=== PATIENT | male | born 1960 | race Caucasian/White ===

== ENCOUNTER 2016-10-25 22:19 | Emergency (ER) | payer SELFPAY ==
[~2016-10-25] VITALS: Ht 177.8 cm; Wt 91.0 kg
[~2016-10-25 22:19] MED LIST: AMLO10 PO; BAYE325T3 PO; CLIN1CAP6 PO; DOXY100C PO; DYAZ37.52 PO; HYDR-3533 PO; LABE100 PO; RAMI10CA PO; ZITH500T PO
--- NOTE | 2016-10-25 22:27 | PD ---
Physical Exam Date Seen by Provider: Oct 25, 2016 Time Seen by Provider: 22:26 Narrative 56 year old male presents to the emergency department for evaluation of flulike symptoms including chest pain, shortness of breath, head congestion, sore throat , coughing, low grade fevers for 4-5 days. Symptoms are worsening, not improving. He was diagnosed with influenza by his primary care provider. Patient awaiting bed placement. [facility] Supervised Visit with PILI: Ronel Prieto Oct 25, 2016 22:27
[2016-10-25 22:36] VITALS: BP 229/105; PULSE 69; RESP 16; TEMP 98.5; O2SAT 98
[2016-10-25 23:00] VITALS: BP 201/98; PULSE 64; RESP 16; TEMP 98.4; O2SAT 95
[2016-10-25] MEDS ORDERED: ASPI325T PO (23:05)
[2016-10-25] MEDS ORDERED: LABE100T2 PO (23:07)
[2016-10-25] MEDS ORDERED: TRIA37.5 PO (23:07)
[2016-10-25] MEDS ORDERED: LISI-515 PO (23:07)
[2016-10-25] MEDS ORDERED: SODIUM CHLOR 0.9% 1000 ML INJ 1,000 ML IV SCH (23:17)
[2016-10-25 23:19] LABS: MEAN CORPUSCULAR HGB CONC 36.5 % (32.0-36.0)
[2016-10-25] MEDS ORDERED: KETOROLAC TROMETHAMINE 30 MG/ML (IVP) VIAL IV PUSH ONE (23:30)
[2016-10-25] MEDS ORDERED: SODIUM CHLORIDE 0.9% FLUSH 10 ML FLUSH IV FLUSH PRN (23:30)
[2016-10-25] MEDS ORDERED: METOCLOPRAMIDE HCL 10 MG/2 ML VIAL IV PUSH ONE (23:30)
[2016-10-25 23:36] VITALS: PULSE 60; RESP 12; O2SAT 95
[2016-10-25] MEDS: RESP: ALBUTEROL 2.5 MG/IPRATROPIUM 0.5 MG NEB (SCH) INH ×2 (23:51→23:52)
[2016-10-25 23:54] LABS: BASOPHIL % 0.6 % (0.0-2.0); EOSINOPHIL # 0.1 TH/MM3 (0-0.4); EOSINOPHIL % 3.9 % (0.0-4.0); HEMATOCRIT 37.7 % (39.0-51.0); LYMPH % 20.8 % (9.0-44.0); LYMPHOCYTE # 0.8 TH/MM3 (1.0-4.8); MEAN CELL VOLUME 85.2 FL (80.0-100.0); MEAN CORPUSCULAR HEMOGLOBIN 31.1 PG (27.0-34.0); MONO % 20.6 % (0.0-8.0); NEUT % 54.1 % (16.0-70.0); PLATELET COUNT 166 TH/MM3 (150-450); RED BLOOD COUNT 4.42 MIL/MM3 (4.50-5.90); RED CELL DISTRIBUTION WIDTH 13.3 % (11.6-17.2); WHITE BLOOD COUNT 3.7 TH/MM3 (4.0-11.0)
[2016-10-25 23:55] LABS: HEMO FLAGS AUTO DIFF
[2016-10-26 00:18] LABS: ALT (GPT) 28 U/L (12-78); ANION GAP 6 MEQ/L (5-15); AST (GOT) 18 U/L (15-37); BICARBONATE 31.3 MEQ/L (21.0-32.0); BLOOD UREA NITROGEN 13 MG/DL (7-18); CHLORIDE 104 MEQ/L (98-107); GLOMERULAR FILTRATION RATE 77 ML/MIN (>89); POTASSIUM 3.5 MEQ/L (3.5-5.1); SODIUM (NA) 141 MEQ/L (136-145)
[2016-10-26 00:20] LABS: ALKALINE PHOSPHATASE 51 U/L (45-117); TOTAL BILIRUBIN ADULT 0.8 MG/DL (0.2-1.0)
[2016-10-26 00:27] VITALS: BP 169/77; PULSE 71; RESP 14; O2SAT 95
--- NOTE | 2016-10-26 00:35 | RADRPT ---
EXAM DATE/TIME: 10/26/2016 00:11 [place] COMPARISON: CHEST SINGLE AP, August 07, 2015, 18:51. INDICATIONS : Shortness of breath. MEDICAL HISTORY : Hypertension. A-Fib SURGICAL HISTORY : None. ENCOUNTER: Initial ACUITY: 1 day PAIN SCORE: 0/10 LOCATION: Bilateral chest FINDINGS: A single view of the chest demonstrates the lungs to be symmetrically aerated without evidence of mas s, infiltrate or effusion. The cardiomediastinal contours are unremarkable. Spurs are seen at the th oracic spine. CONCLUSION: No acute disease. Juan Pablo Zamora MD on October 26, 2016 at 0:33 Board Certified Radiologist. This report was verified electronically.
--- NOTE | 2016-10-26 00:39 | PD ---
HPI Chief Complaint: Cold / Flu Symptoms Time Seen by Provider: 23:13 Travel History International Travel<30 days: No Contact w/Intl Traveler<30days: No Traveled to known affect area: No History of Present Illness HPI 56-year-old male here for evaluation of flulike symptoms. He reports that about 4-5 days ago he was diagnosed with the flu. He was not started on any medications at that time. He states his symptoms have been worsening including cough, shortness of breath, head congestion, sore throat, low-grade fevers. Patient is also complaining of some chest tightness. Cough is productive intermittently of yellowish sputum, however the patient reports that he feels as though he cannot cough up what he feels is in his chest. He is having overall generalized malaise and weakness. PFSH Past Medical History Hx Anticoagulant Therapy: Yes (ASPIRIN) Atrial Fibrillation: Yes Blood Disorders: No Anxiety: Yes Depression: No Heart Rhythm Problems: Yes (afib) Cancer: No Cardiac Catheterization: Yes (2009) Cardiovascular Problems: Yes (AFIB/HTN) High Cholesterol: Yes Chest Pain: Yes (CHEST PRESSURE 08/27/15) Congestive Heart Failure: No Diabetes: No Diminished Hearing: No Endocrine: No Gastrointestinal Disorders: Yes (NAUSEA) GERD: Yes Genitourinary: No Hypertension: Yes Immune Disorder: No Implanted Vascular Access Dvce: No Musculoskeletal: No Neurologic: Yes (VERTIGO HX) Psychiatric: Yes Reproductive: No Respiratory: Yes (PNA) Immunizations Current: No Pneumonia: Yes (HX) PNEUMOCCOCAL Vaccine (Year): 2 Past Surgical History Coronary Artery Bypass Graft: No Other Surgery: No Social History Alcohol Use: No Tobacco Use: No Substance Use: No Allergies-Medications (Allergen,Severity, Reaction): Coded Allergies: Bactrim (Verified Allergy, Severe, Rash, 10/25/16) Cephalosporins (Verified Allergy, Severe, Hives, 10/25/16) Codeine (Verified Allergy, Severe, INCREASE BLOOD PRESSURE, 10/25/16) Reported Meds & Prescriptions Reported Meds & Active Scripts Active Ventolin Hfa 18 GM Inh (Albuterol Sulfate) 90 Mcg/Act Aer 2 Puff INH Q4-6H PRN Prednisone 50 Mg Tab 50 Mg PO DAILY 5 Days Zithromax Z-Radhames (Azithromycin) 250 Mg Dspk 250 Mg PO DIRECTED 500 MG (2 tabs) day 1, then 1 tab days 2-5. Reported Triamterene-Hydrochlorothiazide 37.5-25 Mg Tab 1 Tab PO DAILY Lisinopril 20 Mg Tab 20 Mg PO BID Labetalol (Labetalol HCl) 100 Mg Tab 100 Mg PO BID Aspirin 325 Mg Tab 325 Mg PO DAILY Review of Systems Except as stated in HPI: all other systems reviewed are Neg Physical Exam Narrative GENERAL: Well-developed, well-nourished, no acute distress. SKIN: Focused skin assessment warm/dry. No rash. HEAD: Atraumatic. Normocephalic. EYES: Pupils equal and round. No scleral icterus. No injection or drainage. ENT: Mucous membranes pink and moist. Normal pharynx. Normal tympanic members and external auditory canals bilaterally. NECK: Trachea midline. No JVD. No nuchal rigidity. CARDIOVASCULAR: Regular rate and rhythm. No murmur appreciated. RESPIRATORY: No accessory muscle use. Clear to auscultation. Breath sounds equal bilaterally. GASTROINTESTINAL: Abdomen soft, non-tender, nondistended. MUSCULOSKELETAL: No obvious deformities. No clubbing. No cyanosis. No edema. NEUROLOGICAL: Awake and alert. No obvious cranial nerve deficits. Motor grossly within normal limits. Normal speech. PSYCHIATRIC: Appropriate mood and affect; insight and judgment normal. Data Data Last Documented VS Vital Signs Date Time Temp Pulse Resp B/P Pulse Ox O2 Delivery O2 Flow Rate FiO2 10/26/16 01:20 70 16 168/70 95 10/26/16 00:27 Room Air 10/25/16 23:00 98.4 Orders Complete Blood Count With Diff (10/25/16 23:17) Comprehensive Metabolic Panel (10/25/16 23:17) Iv Access Insert/Monitor (10/25/16 23:17) Ecg Monitoring (10/25/16 23:17) Oximetry (10/25/16 23:17) Sodium Chlor 0.9% 1000 Ml Inj (Ns 1000 M (10/25/16 23:17) Sodium Chloride 0.9% Flush (Ns Flush) (10/25/16 23:30) Chest, Single Ap (10/25/16 ) Albuterol-Ipratropium Neb (Duoneb Neb) (10/25/16 23:30) Metoclopramide Inj (Reglan Inj) (10/25/16 23:30) Ketorolac Inj (Toradol Inj) (10/25/16 23:30) Electrocardiogram (10/26/16 ) Ckmb (Isoenzyme) Profile (10/26/16 00:31) Troponin I (10/26/16 00:31) CKMB (10/25/16 23:35) CKMB% (10/25/16 23:35) Labs Laboratory Tests Test 10/25/16 23:35 White Blood Count 3.7 TH/MM3 Red Blood Count 4.42 MIL/MM3 Hemoglobin 13.8 GM/DL Hematocrit 37.7 % Mean Corpuscular Volume 85.2 FL Mean Corpuscular Hemoglobin 31.1 PG Mean Corpuscular Hemoglobin 36.5 % Concent Red Cell Distribution Width 13.3 % Platelet Count 166 TH/MM3 Mean Platelet Volume 8.2 FL Neutrophils (%) (Auto) 54.1 % Lymphocytes (%) (Auto) 20.8 % Monocytes (%) (Auto) 20.6 % Eosinophils (%) (Auto) 3.9 % Basophils (%) (Auto) 0.6 % Neutrophils # (Auto) 2.0 TH/MM3 Lymphocytes # (Auto) 0.8 TH/MM3 Monocytes # (Auto) 0.8 TH/MM3 Eosinophils # (Auto) 0.1 TH/MM3 Basophils # (Auto) 0.0 TH/MM3 CBC Comment AUTO DIFF Differential Total Cells 100 Counted Neutrophils % (Manual) 47 % Band Neutrophils % 17 % Lymphocytes % 16 % Monocytes % 17 % Eosinophils % 3 % Neutrophils # (Manual) 2.4 TH/MM3 Differential Comment FINAL DIFF MANUAL Toxic Granulation 1+ Platelet Estimate NORMAL Platelet Morphology Comment NORMAL Sodium Level 141 MEQ/L Potassium Level 3.5 MEQ/L Chloride Level 104 MEQ/L Carbon Dioxide Level 31.3 MEQ/L Anion Gap 6 MEQ/L Blood Urea Nitrogen 13 MG/DL Creatinine 1.00 MG/DL Estimat Glomerular Filtration 77 ML/MIN Rate Random Glucose 126 MG/DL Calcium Level 8.4 MG/DL Total Bilirubin 0.8 MG/DL Aspartate Amino Transf 18 U/L (AST/SGOT) Alanine Aminotransferase 28 U/L (ALT/SGPT) Alkaline Phosphatase 51 U/L Total Creatine Kinase 199 U/L Creatine Kinase MB 1.3 NG/ML Troponin I LESS THAN 0.02 NG/ML Total Protein 7.1 GM/DL Albumin 3.6 GM/DL MDM Medical Decision Making Medical Screen Exam Complete: Yes Emergency Medical Condition: Yes Interpretation(s) EKG: Sinus, rate 66, normal axis, RBBB, no acute ischemic abnormality, unchanged from priors. Differential Diagnosis Influenza, viral illness, URI, pneumonia, bronchitis, PE unlikely, ACS unlikely Narrative Course Vital signs reviewed. Initial blood pressure was 229/105 and improved to 169/77 without any intervention. CBC shows WBC 3.7, hemoglobin 13.8, hematocrit 37.7, platelets 166. 20.6% monocytes, 17% band neutrophils. CMP is unremarkable. Cardiac enzymes are negative. Chest x-ray shows no acute disease. The patient was given 3 DuoNeb treatments, IV Reglan, IV Toradol, and normal saline IV. He reports significant improvement in symptoms. His lungs are clear. He is in no respiratory distress. Patient reports he was definitely tested positive for the flu about 5 days ago. He is having persistent cough with intermittent greenish sputum. Likely has bronchitis on top of the flu. He will be discharged home with a prescription for a Z-Radhames, albuterol inhaler, and prednisone. PMD follow-up this week. He was informed on when to return to the emergency department. He verbalizes understanding and agreement with plan. Diagnosis Primary Impression: Bronchitis Additional Impression: Influenza Referrals: Primary Care Physician 3 days Additional Instructions: Follow-up with your primary care physician this week. Take medications as prescribed. Return to the emergency department for worsening symptoms or any other concerns. Scripts Albuterol 18 GM Inh (Ventolin Hfa 18 GM Inh)90 Mcg/Act Aer2 Puff INH Q4-6H PRN ( SHORTNESS OF BREATH) #1 INHALER Ref 0 Prov:Roe De Jesus MD 10/26/16 Prednisone 50 Mg Tab50 Mg PO DAILY 5 Days Ref 0 Prov:Roe De Jesus MD 10/26/16 Azithromycin (Zithromax Z-Radhames)250 Mg Osoj477 Mg PO DIRECTED #1 DSPK Ref 0 500 MG (2 tabs) day 1, then 1 tab days 2-5. Prov:Roe De Jesus MD 10/26/16 Disposition: 01 DISCHARGE HOME Condition: Stable oRe De Jesus MD Oct 26, 2016 00:39
[2016-10-26 00:49] VITALS: RESP 14
[2016-10-26 01:03] LABS: BANDS 17 % (0-6); EOSINOPHILS 3 % (0-4); NEUTROPHIL # MANUAL DIFF 2.4 TH/MM3 (1.8-7.7); PLATELET ESTIMATE SMEAR NORMAL (NORMAL); PLATELET MORPHOLOGY NORMAL (NORMAL); POLYS (SEG NEUTROPHILS) 47 % (16-70); SCAN/DIFF FINAL DIFF MANUAL; TOXIC GRANULATION 1+ (NORMAL); WBC DIFF SAMPLE 100
[2016-10-26 01:09] LABS: CREATINE KINASE 199 U/L (39-308)
[2016-10-26] MEDS ORDERED: PRED50 PO (01:17)
[2016-10-26] MEDS ORDERED: VENTAER INH (01:17)
[2016-10-26] MEDS ORDERED: ZITHTAB PO (01:17)
[2016-10-26 01:20] VITALS: BP 168/70
[2016-10-26 01:21] LABS: CKMB 1.3 NG/ML (0.5-3.6)
--- NOTE | 2016-10-26 14:39 | EKG ---
Date Performed: 10/26/2016 Time Performed: 00:39:23 PTAGE: 56 years EKG: Sinus rhythm POSSIBLE RIGHT VENTRICULAR CONDUCTION DELAY MODERATE ST DEPRESSION Compared to prior tracing no sign ificant change ABNORMAL ECG PREVIOUS TRACING : 08/26/2015 23.51 DOCTOR: Chris Watkins Interpretating Date/Time 10/26/2016 14:37:24
== END 2016-10-26 01:26 | disposition home or self-care (01) ==
LOC: NEPD 22:19
DX: J40 Bronchitis, not specified as acute or chronic (principal); J11.1 Influenza due to unidentified influenza virus with other respiratory manifestations; R94.31 Abnormal electrocardiogram [ECG] [EKG]; I48.91 Unspecified atrial fibrillation; I10 Essential (primary) hypertension; Z79.01 Long term (current) use of anticoagulants
CPT/HCPCS: 71010; 80053; 82550; 82552; 84484; 85007; 85027; 93005; 94640; 94664; 96361; 96374; 96375; 99285; J1885; J2765; J7030